=== PATIENT | female | born 1955 | race Caucasian/White ===

== ENCOUNTER 2022-07-09 10:50 | Emergency (ER) | payer MEDICARE, OTHER, SELFPAY ==
--- NOTE | ~2022-07-09 | XR_ITS ---
XR chest 2V DATE: 07/09/2022 11:27 INDICATION: Cough, crackles TECHNIQUE: 2 views COMPARISON: None FINDINGS: Normal heart size. No hilar or mediastinal enlargement. Aortic arch calcification. No hilar or mediastinal enlargement. Calcified pulmonary granulomas. Probable calcified gallstones. IMPRESSION: No active cardiac pulmonary disease Aortic atherosclerosis Cholelithiasis Reviewed, dictated and finalized at location A. RN
[2022-07-09 11:00] VITALS: BP 108/75; PULSE 80; RESP 14; TEMP 37.4; O2SAT 99
--- NOTE | 2022-07-09 11:45 | ED.URI ---
HPI - URI/Sore Throat General Chief Complaint: Upper Respiratory Infection Stated Complaint: Cough Time Seen by Provider: 07/09/22 11:30 Source: patient Mode of arrival: ambulatory Limitations: no limitations History of Present Illness HPI Narrative: Ms. Lopez is a 67-year-old female patient presenting to the clinic today with complaints of a productive cough since Tuesday. She reports that she fell as though she may have the flu starting last Tuesday. She reports that she has broke her fever however now she is having a productive cough with some shortness of breath. She is concerned that she may have pneumonia MD elicited complaint: sore throat and nasal congestion Related Data Home Medications Medication Instructions Recorded Confirmed levothyroxine 75 mcg tablet 75 mcg PO DAILY 07/09/22 07/09/22 pravastatin 20 mg tablet 20 mg PO DAILY 07/09/22 07/09/22 Allergies Allergy/AdvReac Type Severity Reaction Status Date / Time Sulfa (Sulfonamide AdvReac Mild Nausea and Verified 07/09/22 11:28 Antibiotics) Vomiting Review of Systems Review of Systems: Pertinent positives per HPI. Patient denies any rash, headache, visual changes, dizziness, chest pain, palpitations, nausea, vomiting, diarrhea, constipation, abdominal pain, or any urinary issues. PMFSH Comments At the time of my signature, I reviewed and agree with the nursing past medical, surgical, social, and family history. There is no relevant family history pertinent to the patient complaint. Exam Narrative: General: Well-developed, well nourished, in no apparent distress Head: Normocephalic, atraumatic Eyes: Pupils equally round and reactive to light bilaterally, EOM intact, sclera and conjunctive clear, no discharge, lids normal Ears: TMs intact and clear, ear canals clear, no drainage, grossly hearing normal. Nose: Nares patent, no discharge, no inflammation, no sinus tenderness. Mouth: Oral pharynx without lesions or masses, good dentition, MMM. Neck: Supple, trachea midline, no enlargement of anterior or posterior cervical nodes, no thyroid masses or goiter palpable. Cardio: Regular rate and rhythm, s1 and s2 normal, no murmur appreciated. Resp: expiratory wheezing and rhonchi over the left posterior lung field, no rales or rubs Course Course Emergency Course: Portions of this record may have been created with voice recognition software. Level of Care: Express Care Visit Vital Signs Vital signs: Vital Signs Temperature 37.4 C 07/09/22 11:00 Pulse Rate 80 07/09/22 11:00 Respiratory Rate 14 07/09/22 11:00 Blood Pressure 108/75 07/09/22 11:00 Pulse Oximetry 99 07/09/22 11:00 Oxygen Delivery Room Air 07/09/22 11:00 Temperature 37.4 C 07/09/22 11:00 Pulse Rate 80 07/09/22 11:00 Respiratory Rate 14 07/09/22 11:00 Blood Pressure 108/75 07/09/22 11:00 Pulse Oximetry 99 07/09/22 11:00 Oxygen Delivery Room Air 07/09/22 11:00 Vital signs reviewed MDM - URI/Sore Throat MDM Narrative Medical decision making narrative: at the time of visit patient is resting comfortably on the exam table. Chest x-ray was performed and does not show any sign of pneumonia. Awaiting radiologist's reading. I suspect patient has bronchitis and will send in prescription for prednisone, azithromycin, and albuterol inhaler. Supportive measures were discussed with the patient she voiced understanding of discharge instructions. Discussed that if radiologist finds any other findings on her x-ray report we will contact her and recommend further treatment if necessary. Differential Diagnosis Differential diagnosis: Likely upper respiratory infection, otitis media, sinusitis, viral infection, bronchitis, influenza, pharyngitis and other ( pneumonia ) Discharge Plan Discharge Clinical Impression: Bronchitis Patient Disposition: Home, Self-Care Condition: Stable Instructions: Antibiotic Form, Acute Bronchitis (ED)
== END 2022-07-09 12:20 | disposition home or self-care (01) ==
PROVIDERS: Emergency Provider Nurse Practitioner Family; PCP Internal Medicine
DX: J40 Bronchitis, not specified as acute or chronic (principal)
CPT/HCPCS: 71046; 99203; G0463

== ENCOUNTER 2022-08-09 09:16 | Emergency (ER) | payer MEDICARE, OTHER, SELFPAY ==
[2022-08-09 09:24] VITALS: BP 136/81; PULSE 86; RESP 16; TEMP 37.2; O2SAT 99
--- NOTE | 2022-08-09 10:39 | ED.URI ---
HPI - URI/Sore Throat General Chief Complaint: Upper Respiratory Infection Stated Complaint: cold flu Time Seen by Provider: 08/09/22 10:39 Source: patient, RN notes reviewed and old records reviewed Mode of arrival: ambulatory Limitations: no limitations History of Present Illness HPI Narrative: 67-year-old female who presents to [facility] with complaints of 3 day history cough and sinus with some congestion. Patient also reports that she has been exposed to her granddaughter who was diagnosed with strep last week with patient stating she does have some hoarseness and a little throat irritation. Patient reports she had bronchitis in June and her symptoms started out last time in similar fashion.Patient reports that she has not had any known fevers or chills. Patient reports that she is traveling to [place] this weekend and wants to get better.Patient reports that she has had COVID vaccinations and also flu shot. MD elicited complaint: cough, sore throat, rhinorrhea and nasal congestion Pertinent past history: other (bronchitis, recent exposure to strep) Onset (ago): day(s) (3) Treatments prior to arrival: other (yrte) Related Data Home Medications Medication Instructions Recorded Confirmed levothyroxine 75 mcg tablet 75 mcg PO DAILY 07/09/22 07/09/22 pravastatin 20 mg tablet 20 mg PO DAILY 07/09/22 07/09/22 Allergies Allergy/AdvReac Type Severity Reaction Status Date / Time Sulfa (Sulfonamide AdvReac Mild Nausea and Verified 07/09/22 11:28 Antibiotics) Vomiting Review of Systems Review of Systems: CONSTITUTIONAL: Denies malaise, chills, sweats, or fever. EYES: Denies visual changes, redness, or discharge. ENT: Reports rhinorrhea, congestion, sinus pain, no otalgia scratchy sore throat.hoarseness CARDIOVASCULAR: Denies chest pain, palpitations, or edema. RESPIRATORY: Reports cough.? Denies dyspnea. GASTROINTESTINAL: Denies abdominal pain, nausea, vomiting, diarrhea SKIN: Denies rash or itching. MUSCULOSKELETAL: Denies myalgia. NEUROLOGIC: Denies headache. All systems reviewed & are unremarkable except as noted in HPI and below PMFSH Past Medical History Medical History (Updated 08/16/22 @ 14:55 by Josseline Valencia NP) Bronchitis Elevated cholesterol Hypertension Hypothyroid Surgical History Surgical History (Updated 08/16/22 @ 14:51 by Josseline Valencia NP) H/O tubal ligation Social History Social History (Updated 08/16/22 @ 14:52 by Josseline Valencia NP) Smoking status: Never smoker Alcohol intake: current Alcohol use details: social Substance use: never Gender identity (if verbalized by the patient): Female Comments At time of signature, agree with nursing past medical, surgical, social and family history. There is no relevant family history pertinent to the presenting complaint Exam Narrative: GENERAL: Well-appearing, well-nourished, and in no acute distress. HEAD: Normocephalic EYES: PERRLA, conjunctivae clear ENT: Nares clear, turbinates edematous and erythematous, clear discharge. Mucous membranes moist. TM pearly barcenas with dull light reflex bilaterally; no tragal tenderness. Oropharynx erythematous without lesions. Tonsils not enlarged mild redness and without exudate, no drooling, hoarseness, no trismus, uvula midline.post nasal drainage NECK: Supple. No lymphadenopathy CHEST: Clear to auscultation, breath sounds equal. No wheezing, rhonchi, rales, or stridor. No respiratory distress, speaks in full sentences.cough with SAO2 99% on room air HEART: Regular rate and rhythm. No murmur heard. SKIN: Warm, dry, no rash. NEURO: Alert and oriented x3. PSYCH: Normal mood and affect Course Course Emergency Course: Patient is aware of diagnosis, understands and agrees to treatment plan.? Anticipatory guidance given.? Patient agrees to follow-up as directed and is aware of reasons to seek care at the emergency department. Portions of thi
== END 2022-08-09 11:01 | disposition home or self-care (01) ==
PROVIDERS: Emergency Provider Registered Nurse; PCP Internal Medicine
DX: J06.9 Acute upper respiratory infection, unspecified (principal); J02.9 Acute pharyngitis, unspecified; I10 Essential (primary) hypertension; E03.9 Hypothyroidism, unspecified
CPT/HCPCS: 99213; G0463